=== PATIENT | female | born 1945 | race Caucasian/White ===

== ENCOUNTER 2017-11-22 10:58 | Outpatient (CLI) | payer MEDICARE ==
[2017-11-22 12:57] LABS: INR-International Normal Ratio 0.9; Prothrombin Time 12.3 SEC (12.0-14.7)
[2017-11-22 12:58] LABS: PTT 36.6 SEC (22.9-36.1)
[2017-11-22 13:19] LABS: Anion Gap 12 mmol/L (10-20); BUN (Urea Nitrogen) 25 mg/dL (9.8-20.1); Calc. Creatinine Clearance 0 mL/min (70-130); Calcium 9.3 mg/dL (7.8-10.44); Carbon Dioxide 25 mmol/L (23-31); Chloride 104 mmol/L (98-107); Estimated GFR-MDRD 84; Glucose 81 mg/dL (83-110); Potassium 4.2 mmol/L (3.5-5.1); Sodium 137 mmol/L (136-145)
--- NOTE | 2017-11-23 07:34 | EKG ---
Test Reason : Blood Pressure : / mmHG Vent. Rate : 053 BPM Atrial Rate : 053 BPM P-R Int : 000 ms QRS Dur : 074 ms QT Int : 402 ms P-R-T Axes : 000 077 055 degrees QTc Int : 377 ms Sinus bradycardia with short KS Poor anterior R wave progression When compared with ECG of 26-AUG-2015 06:40, ST no longer elevated in Anterior leads Nonspecific T wave abnormality now evident in Anterior leads Confirmed by DR. Lizeth RICKETTS ([id number]) on 11/23/2017 7:33:51 AM Referred By: LUCERO Confirmed By:DR. Lizeth RICKETTS
== END 2017-11-22 10:59 | disposition home or self-care (01) ==
LOC: LABBT 10:58
PROVIDERS: ATTEND Surgery
DX: Z01.818 Encounter for other preprocedural examination (principal); M48.061 Spinal stenosis, lumbar region without neurogenic claudication; M54.16 Radiculopathy, lumbar region
CPT/HCPCS: 80048; 85610; 85730; 93005; 93010

== ENCOUNTER 2017-11-29 08:33 | Day surgery (SDC) | payer MEDICARE ==
[2017-11-22 11:20] VITALS: BMI 22.8
[2017-11-29] MEDS ORDERED: Sodium Chloride 0.9% 10 ML ONE (12:25)
[2017-11-29] MEDS ORDERED: Bacitracin Zinc Ointment 30 gm TUBE ONE (12:25)
[2017-11-29] MEDS ORDERED: Thrombin 5000 UNITS/5 ML VIAL ONE (12:25)
[2017-11-29 12:31] LABS: Hemoglobin 14.5 g/dL (12.0-16.0); Mean Corpuscular HGB CONC 32.7 g/dL (32.0-36.0); Mean Corpuscular Hemoglobin 32.2 pg (27.0-31.0); Mean Corpuscular Volume 98.4 fL (78.0-98.0); Mean Platelet Volume 7.1 fL (7.4-10.4); Platelet Count 266 thou/uL (130-400); RBC Distribution Width 12.2 % (11.5-14.5)
[2017-11-29] MEDS ORDERED: CEFAZOLIN/Water 2 GM/20 ML SYRINGE ONE (12:39)
[2017-11-29] MEDS ORDERED: Fentanyl 100 MCG/2 ML VIAL ONE ×2 (12:48→15:57)
[2017-11-29] MEDS ORDERED: traMADol HCl 50 MG TAB PO PRN (15:27)
[2017-11-29] MEDS ORDERED: HYDROcodone/Acetaminophen 7.5/325 mg Tablet PO PRN (15:27)
[2017-11-29] MEDS ORDERED: Promethazine HCl 25 MG/ML VIAL IM PRN ×2 (15:27→15:29)
[2017-11-29] MEDS ORDERED: tiZANidine HCl 4 MG TAB PO PRN (15:27)
[2017-11-29] MEDS ORDERED: Acetaminophen 325 MG TAB PO PRN (15:27)
[2017-11-29] MEDS ORDERED: Fleet Enema 133 ML BOT PR PRN (15:27)
[2017-11-29] MEDS ORDERED: Bisacodyl 10 MG SUPP PR PRN (15:27)
[2017-11-29] MEDS ORDERED: Mag-Al 1200 mg/1200 mg/30 ML UDCUP PO PRN (15:27)
[2017-11-29] MEDS ORDERED: Milk Of Magnesia 30 ML UDCUP PO PRN (15:27)
[2017-11-29] MEDS ORDERED: Promethazine HCl 25 MG/ML VIAL SLOW IVP PRN (15:29)
[2017-11-29] MEDS ORDERED: Fluticasone Propionate Nasal Spray 16 gm Bottle NASAL PRN (15:29)
[2017-11-29] MEDS ORDERED: Morphine Sulfate 2 MG/ML SYRINGE SLOW IVP PRN (15:29)
[2017-11-29] MEDS ORDERED: Ondansetron HCl/PF 4 MG/2 ML Vial IVP PRN (15:29)
[2017-11-29] MEDS ORDERED: Meperidine HCl/PF 25 MG/ML VIAL SLOW IVP PRN (15:29)
[2017-11-29] MEDS ORDERED: Sodium Chloride 0.9% 1,000 ML IV SCH (15:30)
--- NOTE | 2017-11-29 20:08 | OP ---
OR: 12 WOUND TYPE: Type 1 wound. SURGEON: Toni Guerra M.D. [employer] REP: Brenden Ching PA-C. PREPROCEDURE DIAGNOSES: Multilevel lumbar stenosis with low back and leg pain. POSTPROCEDURE DIAGNOSES: Multilevel lumbar stenosis with low back and leg pain. PROCEDURE: L2-L3, L3-L4, L4-L5, L5-S1 laminectomies, partial facetectomies and foraminotomies over t he L2, L3, L4, L5 and S1 nerve roots. DESCRIPTION OF PROCEDURE: After informed consent was obtained from the patient, the patient brought to OR 12. Proper patient pause and identification was carried out. She was placed in excellent endo tracheal anesthesia and positioned prone on the OR table. All appropriate points were padded. We id entified the L2 through S1 dorsal spines and a linear bob was made over this region. This region wa s sterilely cleansed, prepared, and draped. Proper patient pause and identification was carried out. The wound was then opened with a combination of sharp, monopolar and blunt dissection to expose the L2, L3, L4, L5 and S1 dorsal spines lamina and a localization film confirmed our area of interest. We then performed an L2, L3, L4, L5, S1 laminectomies, partial facetectomies and foraminotomies with excellent decompression over all of the nerve roots and copious irrigation occurred throughout as did maximizing hemostasis. The wound was then closed in anatomic layers following the sprinkling of van comycin powder. There was no spinal fluid leak.
[2017-11-29] MEDS: Acetaminophen/Codeine 30-300mg Tablet PO PRN (20:54)
[2017-11-29] MEDS ORDERED: LATANOPROST EA EYE SCH (21:00)
[2017-11-29] MEDS: CEFAZOLIN/Water 2 GM/20 ML SYRINGE SLOW IVP SCH (21:33)
[2017-11-30] MEDS: CEFAZOLIN/Water 2 GM/20 ML SYRINGE SLOW IVP SCH (06:04)
[2017-11-30] MEDS: Acetaminophen/Codeine 30-300mg Tablet PO PRN (07:00)
[2017-11-30 07:37] VITALS: BP 99/63; TEMP 98.4
[2017-11-30] MEDS ORDERED: Timolol 0.5% Ophth Soln 5 ml Bottle EA EYE SCH (09:00)
[2017-11-30] MEDS ORDERED: LEVOBUNOLOL HCL EA EYE SCH (09:00)
[2017-11-30] MEDS ORDERED: Loratadine 10 MG TAB PO SCH (09:00)
[2017-11-30] MEDS ORDERED: Latanoprost 0.005% Ophth Soln 2.5 ml Bottle EA EYE SCH (21:00)
--- NOTE | 2017-11-30 22:26 | DIS ---
DATE OF ADMISSION: 11/29/2017 DATE OF DISCHARGE: 11/30/2017 DISCHARGE DIAGNOSES: 1. Lumbar radiculopathy. 2. Lumbar spinal stenosis. HOSPITAL COURSE: Ms. Christopher was admitted to undergo L2 through S1 laminectomy, partial facetectomies a nd foraminotomies with Dr. Guerra. The patient's surgery was without complication and she was able t o recover overnight on the surgical floor. The next day, she met criteria for discharge and appropri ate outpatient followup appointments and education was provided to the patient. At the time of disch sari, the patient had good strength in the bilateral lower extremities with improvement in her leg pa in postoperatively. She certainly understood to call the office with questions or concerns, mitesh das was doing well.
== END 2017-11-30 11:02 | disposition home or self-care (01) ==
LOC: SDC 08:33 → SURG B 16:52 → SDC 11-30 11:02
PROVIDERS: ATTEND Surgery
PROC: 00NY0ZZ Release Lumbar Spinal Cord, Open Approach (ICD-10-PCS; principal; 2017-11-29)
DX: M48.061 Spinal stenosis, lumbar region without neurogenic claudication (principal); M54.16 Radiculopathy, lumbar region; Z79.1 Long term (current) use of non-steroidal anti-inflammatories (NSAID); Z79.899 Other long term (current) drug therapy
CPT/HCPCS: 76001; 85027; A4216; J0131; J2270; J3010; J3370; J3490